=== PATIENT | female | born 1955 | race Caucasian/White ===

== ENCOUNTER → 2017-09-18 | Outpatient (CLI) | payer OTHER ==
[~2017-09-18] MED LIST: LOVASTATIN
--- NOTE | 2017-09-27 08:25 | Diagnostic Imaging Report ---
#[id number] - MGSCRNBI #BILATERAL DIGITAL SCREENING MAMMOGRAM WITH CAD: 09/18/2017 CLINICAL: Routine screening. Comparison is made to exams dated: 08/11/2016 mammogram, 09/24/2015 mammogram and 09/03/2015 mammogram - [facility]. Current study contains 8 films. There are scattered fibroglandular elements in both breasts. Current study was also evaluated with a Computer Aided Detection (CAD) system. There are benign calcifications in both breasts. There also are benign nodules in the left breast that are stable. Bilateral breast implants are present with adjacent dystrophic calcification in the left breast secondary to implant leakage/rupture. No significant masses, calcifications, or other findings are seen in either breast. There has been no significant interval change. IMPRESSION: BENIGN There is no mammographic evidence of malignancy. A 1 year screening mammogram is recommended. The patient will be notified by letter of the results. Naif Keith Jr., D.O. cw/:09/26/2017 13:10:30 Enhanced Environmental Operator: Vesta NOEL(R)(M), [facility] letter sent: Compared to Prior B9 Mammogram BI-RADS: 2 Benign
== END ==
LOC: MAMMO 13:02
PROVIDERS: ATTEND Obstetrics & Gynecology Obstetrics
DX: Z12.31 Encounter for screening mammogram for malignant neoplasm of breast (principal)

== ENCOUNTER → 2018-02-18 | Outpatient (CLI) | payer OTHER ==
--- NOTE | 2018-02-18 11:30 | Diagnostic Imaging Report ---
EXAM: Bone mineral density study 02/18/2018 9:02 AM INDICATION: \S\OSTEOPENIA COMPARISON: 09/03/2015 FINDINGS: Evaluation of the left hip and lumbar spine was performed. The study is technically adequate. The patient's fracture risk is compared to an age-matched control. The left femoral neck total bone mineral density is 0.655 gm/cm2, the T-score is -1.7 and the total Z-score is -0.2. The total left hip bone mineral density is 0.745 gm/cm2, the T-score is -1.6 and the total Z-score is -0.4. The total left hip BMD change versus baseline is -1.5%. The lumbar spine total bone mineral density is 0.928 gm/cm2, the T-score is -1.1, and the Z-score is 0.7. The lumbar spine BMD change versus baseline is 9.3%. IMPRESSION: Bone mineralization by WHO Classification is osteopenia, the fracture risk is increased. Signed by: Dr. Buck Chand MD on 02/18/2018 11:26 AM
--- NOTE | 2018-02-18 11:40 | Diagnostic Imaging Report ---
EXAM: Thyroid Ultrasound INDICATION: \[id number] \S\[id number] \S\THYROID NODULE COMPARISON: Thyroid ultrasound dated 05/04/2016 TECHNIQUE: Transverse and sagittal images were obtained of the thyroid gland. FINDINGS: Thyroid gland: Size: Right lobe: 3.9 x 1.3 x 1.6 cm, Normal in size Left lobe: 4 x 1.4 x 1.7 cm, Normal in size Isthmus: 0.3 cm, Normal in size Appearance: Mildly heterogeneous echotexture without increased vascularity Masses/Nodules: Right lobe: 0.6 x 0.4 x 0.5 cm solid (2 pts) nodule in the interpolar region with smooth margin (0 pts), djoob-itkh-epku (0 pts), isoechoic (1 pt), and punctate echogenic foci (3 pts). Previously 0.8 x 0.5 x 0.7 cm. TR4a (<1.0 cm): No follow-up. 0.5 x 0.4 x 0.4 cm solid (2 pts) nodule in the inferior pole with smooth margin (0 pts), nxztl-rbhb-xqlt (0 pts), hypoechoic (2 pts), and macrocalcifications (1 pt). Previously 0.4 x 0.3 x 0.5 cm. TR4a (<1.0 cm): No follow-up. Left lobe: 0.7 x 0.6 x 0.6 cm solid (2 pts) nodule in the interpolar region with smooth margin (0 pts), kaayn-jdvy-jxsi (0 pts), hypoechoic (2 pts), and punctate echogenic foci (3 pts). Previously 0.6 x 0.4 x 0.5 cm. TR5b (0.5-1.0 cm), Highly Suspicious: Follow at 1, 2, 3, 4, 5 years. Parathyroid: No focal parathyroid masses. IMPRESSION: Subcentimeter thyroid nodules as above. None meets the criteria for fine-needle aspiration. Recommend follow-up in one year. TI-RADS Lexicon: TR1, Benign: No FNA TR2, Not Suspicious: No FNA. TR3a (<1.5 cm): No follow-up. TR3b (1.5-2.5 cm), Mildly Suspicious: Follow at 1, 3, 5 years. TR3c (>2.5 cm), Mildly Suspicious: FNA. TR4a (<1.0 cm): No follow-up. TR4b (1.0-1.5 cm), Moderately Suspicious: Follow at 1, 2, 3, 5 years. TR4c (>1.5 cm), Moderately Suspicious: FNA. TR5a (<0.5 cm): No follow-up. TR5b (0.5-1.0 cm), Highly Suspicious: Follow at 1, 2, 3, 4, 5 years. TR5c (>1.0 cm), Highly Suspicious: FNA. *Rebiopsy if new suspicious features *No recommendation at this time for significant interval growth. Nodule Characteristics: * Benign features: cystic, hyperechoic, comet-tail artifact, complete halo * Minor suspicious features: solid, hypoechoic, other calcifications * Major suspicious features: microcalcifications, marked hypoechoic (less than strap muscle), suspicious lymph nodes, taller than wide, lobulated or ill-defined margins. Literature: ACR Thyroid Imaging, Reporting and Data System (TI-RADS): White Paper of the ACR TI-RADS Committee. J Am Jong Radiol 2017. Signed by: Dr. Buck Chand MD on 02/18/2018 11:37 AM
== END ==
LOC: US 08:46
PROVIDERS: ATTEND Family Medicine
DX: E04.1 Nontoxic single thyroid nodule (principal); M85.88 Other specified disorders of bone density and structure, other site
CPT/HCPCS: 76536; 77080

== ENCOUNTER → 2018-09-27 | Outpatient (CLI) | payer OTHER | LOC: MAMMO 08:29 | PROVIDERS: ATTEND Family Medicine | DX: Z12.31 Encounter for screening mammogram for malignant neoplasm of breast (principal) | CPT/HCPCS: 77067 ==

== ENCOUNTER → 2019-09-10 | Day surgery (SDC) | payer OTHER ==
[2019-09-08 11:45] LABS: BASOPHILS # (AUTO) 0.1 (0.0-0.1); BASOPHILS % 0.5 % (0.0-1.0); EOSINOPHILS # (AUTO) 0.1 (0.0-0.4); EOSINOPHILS % 1.2 % (0.0-6.0); HEMATOCRIT 40.8 % (34.2-44.1); HEMOGLOBIN 13.7 g/dL (12.0-16.0); LYMPHOCYTES # (AUTO) 2.9 (1.0-3.2); LYMPHOCYTES % 31.3 % (18.0-39.1); MEAN CORPUSCULAR HEMOGLOBIN 31.8 pg (28-32); MEAN CORPUSCULAR HGB CONC 33.6 g/dL (31-35); MEAN CORPUSCULAR VOLUME 94.7 fL (81-99); MONOCYTES # (AUTO) 0.9 (0.2-0.8); MONOCYTES % 9.4 % (4.4-11.3); NEUTROPHILS # (AUTO) 5.3 (2.1-6.9); NEUTROPHILS % 57.4 % (38.7-80.0); PLATELET COUNT 284 x10e3/uL (140-360); RED BLOOD COUNT 4.31 x10e6/uL (3.6-5.1); RED CELL DISTRIBUTION WIDTH 13.2 % (11.7-14.4)
--- NOTE | 2019-09-08 12:10 | Diagnostic Imaging Report ---
Exam: Chest radiograph Clinical History: Preoperative clearance Findings: The cardiomediastinal silhouette and lungs are normal. The regional skeleton and soft tissue are unremarkable. There is no evidence of pleural effusion or pneumothorax. Impression: No radiographic evidence of acute cardiopulmonary disease. Signed by: Dr. Moises Mehta MD on 09/08/2019 12:08 PM
[~2019-09-10] MED LIST changes: +ACETAMINOPHEN 1000 MG/100 ML IV ONE; +CEFAZOLIN SOD 1 GM/NS 50ML 100 ML IV ONE; +DESFLURANE 240 ML BTL INH ONE; +DEXAMETHASONE SOD PHOS INJ 4 MG/ML VIAL ONE; +EPINEPHRINE 1 MG/ML 30ML VIAL ONE; +EYE LUBRICANT OPTH OINT 3.5GM TUBE OP ONE; +FENTANYL CITRATE/PF 100MCG/2 ML INJ ONE; +GLYCOPYRROLATE INJ 0.2 MG/ML VIAL ONE; +KETOROLAC TROMETHAMINE 30 MG/ML VIAL ONE; +LIDOCAINE HCL 2% LOCAL INJ 5 ML SDV VIAL INJ ONE; -LOVASTATIN; +LOVASTATIN PO; +METOCLOPRAMIDE HCL 10 MG/2ML VIAL ONE; +MIDAZOLAM HCL 2 MG/2 ML VIAL ONE; +NEOSTIGMINE 1 MG/ML 10ML VIAL ONE; +ONDANSETRON HCL INJ 2MG/ML 2ML 2 MG/ML VIAL ONE; +PROPOFOL IV EMULSION 10 MG/ML 20 ML VIAL ONE; +ROCURONIUM BROMIDE 10 MG/ML 5ML VIAL ONE; +ROPIVACAINE 0.5% 5 MG/ML 30 ML SDV ONE; +VENLAFAXINE HCL75 MG PO; +VITAMIN D34000 UNIT PO
--- OUTSIDE RECORDS SUMMARY | 2019-09-10 05:39 | XMS REPORT ---
Author [facility] Address Unknown Phone Unavailable Care Team Providers Care Affiliate Marketing Manager Name Role Phone RAJESH SPENCE Unavailable Unavailable ELUI, VU Unavailable Unavailable JAFFE, E GARRETT Unavailable Unavailable Problems This patient has no known problems. Allergies, Adverse Reactions, Alerts This patient has no known allergies or adverse reactions. Medications This patient has no known medications. Results Test Description Test Time Test Comments Text Results Atomic Results Result Comments CHEST 2 VIEWS 2019-09-08 12:08:00 [place] [address] Patient Name: CHRIS GUTIERREZ MR #: [id number] : 1955 Age/Sex: 64/F Req #: [id number] Adm Physician: Ordered by: RAJESH SPENCE MD Report #: [id number] Location: OR Room/Bed: Procedure: [id number] DX/CHEST 2 VIEWS Exam Date: 09/08/19 Exam Time: 1150 REPORT STATUS: Signed Exam: Chest radiograph Clinical History: Preoperative c learance Findings: The cardiomediastinal silhouette and lungs are normal. The regional skeleton and soft tissue are unremarkable. There is no evidence of pleural effusion or pneumothorax. Impression: No radiographic evidence of acute cardiopulmonary disease. Signed by: Dr. Moises Mehta MD on 09/08/2019 12:08 PM Dictated By: MARY MEHTA MD 07 Transcribed By: BISI on 09/08/191207 COPY TO: RAJESH SPENCE MD MRI SHOULDER RIGHT WO 2019-08-20 15:54:00 [facility] [address] [place] [address] Patient Name: CHRIS GUTIERREZ MR #: [id number] : 1955 Age/Sex: 64/F Req #: [id number] Adm Physician: Ordered by: PATRICK NOWAK MD Report #: [id number] Location: MRI Room/Bed: Procedure: [id number] MRI/MRI SHOULDER RIGHT WO Exam Date: Exam Time: REPORT STATUS: Signed MRI of the right shoulder without contrast. History: Shoulder pain. Impingement. Fall. Decreased range of motion. Pain not responding to conservative management. Comparison: None Technique: Coronal PD FS, sagital PD FS, and axial PD and PD FS. Findings: Rotator cuff: Rotator cuff tendinosis with midsubstance degeneration and articular sided partial tear involving the anterior fibers of the supraspinatus and infraspinatus tendons at the humeral insertion site. This is best seen on series 5 image 4 and series 3 image 16. Additionally, there is subscapularis tendinosis. The teres minor tendon is intact. Osseous acromion complex: Type II acromion with mild lateral downsloping. Mild degenerative arthrosis at the acromioclavicular joint with undersurface spurring and narrowing of the supraspinatus tendon outlet. Mild subacromial/subdeltoid bursitis. Glenohumeral joint: Degeneration and fraying of the labrum. The articular cartilage surfaces are intact. The humeral head is well seated in the glenoid fossa. Biceps tendon: Intra-articular biceps tendinosis with fraying at the biceps anchor Other findings: Negative for muscle denervation or osseous fracture Impression: Rotator cuff tendinosis with midsubstance degeneration and articular sided partial tear involving the anterior fibers of the supraspinatus and infraspinatus tendons at the humeral insertion site. Intra-articular biceps tendinosis with fraying at the biceps anchor. Mild degenerative arthrosis at the acromioclavicular joint with undersurface spurring and narrowing of the supraspinatus tendon outlet. Mild subacro mial/subdeltoid bursitis Signed by: Dr. Celsa Saba M.D. on 08/20/2019 3:57 PM Dictated By: CELSA SABA MD, MD 56 Transcribed By: BISI on 08/20/191556 COPY TO: PATRICK NOWAK MD MAMMOGRAPHY DIGITAL SCR BILAT 2018-09-27 10:21:00 [place] [address] Patient Name: CHRIS GUTIERREZ MR #: [id number] : 1955 Age/Sex: 63/F Req #: [id number] [facility] Physician: Ordered by: PATRICK NOWAK MD Report #: [id number] Location: [facility] Room/Bed: Procedure: [id number] MG/MAMMOGRAPHY DIGITAL SCR BILAT Exam Date: 09/27/18 Exam Time: 0847 REPORT STATUS: Signed #[id number] - MGSCRBIL #BILATERAL DIGITAL SCREENING MAMMOGRAM WITH CAD: 09/27/2018 CLINICAL: Routine screening. Comparison is made to exams dated: 09/18/2017 mammogram and 09/24/2015 mammogram - [facility]. Current study contains 8 films. There are scattered fibroglandular elements in both breasts. Current study was also evaluated with a Computer Aided Detection (CAD) system. There are benign calcifications in both breasts. There also are benign nodules in the left breast. Bilateral breast implants are stable with dystrophic calcification adjacent to the left one appearing unchanged. There is stable distortion of the left breast. No significant masses, calcifications, or other findings are seen in either breast. There has been no significant interval change. IMPRESSION: BENIGN There is no mammographic evidence of malignancy. A 1 year screening mammogram is recommended. The patient will be notified by letter of the results. Naif Keith Jr., D.O. cw/:10/11/2018 10:27:08 Legal Nurse Consultant: Vesta NOEL (R)(Letty), [facility] letter sent: Compared to Prior B9 Mammogram BI-RADS: 2 Benign Dictated By: NAIF KEITH DO 1027 Transcribed By: COREEN on 10/11/18 1027 COPY TO: PATRICK NOWAK MD THYROID 2018-02-18 11:28:00 [place] [address] Patient Name: CHRIS GUTIERREZ MR #: [id number] : 1955 Age/Sex: 62/F Req #: [id number] Adm Physician: Ordered by: PATRICK NOWAK MD Report #: [id number] Location: US Room/Bed: Procedure: US/US THYROID Exam Date: 02/18/18 Exam Time: 930 REPORT STATUS: Signed EXAM: Thyroid Ultrasound INDICATION: COMPARISON: Thyroid ultrasound dated 05/04/2016 TECHNIQUE: Transverse and sagittal images were obtained of the thyroid gland. FINDINGS: Thyroid gland: Size: Right lobe: 3.9 x 1.3 x 1.6 cm, Normal in size Left lobe: 4 x 1.4 x 1.7 cm, Normal in size Isthmus: 0.3 cm, Normal in size Appearance: Mildly heterogeneous echotexture without increased vascularity Masses/Nodules: Right lobe: 0.6 x 0.4 x 0.5 cm solid (2 pts) nodule in the interpolar region with smooth margin (0 pts), gfamp-wnbn-flzw (0 pts), isoechoic (1 pt), and punctate echogenic foci (3 pts). Previously 0.8 x 0.5 x 0.7 cm. TR4a (<1.0 cm): No follow-up. 0.5 x 0.4 x 0.4 cm solid (2 pts) nodule in the inferior pole with smooth margin (0 pts), jhszk-tqxo-xnsb (0 pts), hypoechoic (2 pts), and macrocalcifications (1 pt). Previously 0.4 x 0.3 x 0.5 cm. TR4a (<1.0 cm): No follow-up. Left lobe: 0.7 x 0.6 x 0.6 cm solid (2 pts) nodule in the interpolar region with smooth margin (0 pts), rrofi-tugz-fohb (0 pts), hypoechoic (2 pts), and punctate echogenic foci (3 pts). Previously 0.6 x 0.4 x 0.5 cm. TR5b (0.5-1.0 cm), Highly Suspicious: Follow at 1, 2, 3, 4, 5 years. Parathyroid: No focal parathyroid masses. IMPRESSION: Subcentimeter thyroid nodules as above. None meets the criteria for fine- needle aspiration. Recommend follow-up in one year. TI- RADS Lexicon: TR1, Benign: No FNA TR2, Not Suspicious: No FNA. TR3a (<1.5 cm): No follow-up. TR3b (1.5-2.5 cm), Mildly Suspicious: Follow at 1, 3, 5 years. TR3c (>2.5 cm), Mildly Suspicious: FNA. TR4a (<1.0 cm): No follow-up. TR4b (1.0-1.5 cm), Moderately Suspicious: Follow at 1, 2, 3, 5 years. TR4c (>1.5 cm), Moderately Suspicious: FNA. TR5a (<0.5 cm): No follow-up. TR5b (0.5-1.0 cm), Highly Suspicious: Follow at 1, 2, 3, 4, 5 years. TR5c (>1.0 cm), Highly Suspicious: FNA. *Rebiopsy if new suspicious features *No karine mmendation at this time for significant interval growth. Nodule Characteristics: * Benign features: cystic, hyperechoic, comet-tail artifact, complete halo * Minor suspicious features: solid, hypoechoic, other calcifications * Major suspicious features: microcalcifications, marked hypoechoic (less than strap muscle), suspicious lymph nodes, taller than wide, lobulated or ill-defined margins. Literature: ACR Thyroid Imaging, Reporting and Data System (TI-RADS): White Paper of the ACR TI-RADS Committee. J Am Jong Radiol 2017. Signed by: Dr. Buck García MD on 02/18/2018 11:37 AM Dictated By: BUCK GARCÍA MD 36 Transcribed By: BISI on 02/18/181136 COPY TO: PATRICK NOWAK MD BONE DXA DUAL ENERGY 2018-02-18 11:24:00 [place] [address] Patient Name: CHRIS GUTIERREZ MR #: [id number] : 1955 Age/Sex: 62/F Req #: [id number] Adm Physician: Ordered by: PATRICK NOWAK MD Report #: [id number] Location: Room/Bed: Procedure: [id number] DX/BONE DXA DUAL ENERGY Exam Date: Exam Time: REPORT STATUS: Signed EXAM: Bone mineral density study 02/18/2018 9:02 AM INDICATION: COMPARISON: 09/03/2015 FINDINGS: Evaluation of the left hip and lumbar spine was performed. The study is technically adequate. The patient's fracture risk is compared to an age-matched control. The left femoral neck total bone mineral density is 0.655 gm/cm2, the T-score is -1.7 and the total Z-score is -0.2. The total left hip bone mineral density is 0.745 gm/cm2, the T-score is -1.6 and the total Z-score is -0.4. The total left hip BMD change versus baseline is -1.5%. The lumbar spine total bone mineral density is 0.928 gm/cm2, the T-score is -1.1, and the Z-score is 0.7. The lumbar spine BMD change versus baseline is 9.3%. IMPRESSION: Bone mineralization by WHO Classification is osteopenia, the fr acture risk is increased. Signed by: Dr. Buck García MD on 02/18/2018 11:26 AM Dictated By: BUCK GARCÍA MD 1126 Transcribed By: BISI on 02/18/18 112 COPY TO: PATRICK NOWAK MD MAMMOGRAM DIGITAL SCR [place] [address] Patient Name: CHRIS GUTIERREZ MR #: [id number] : 1955 Age/Sex: 62/F Req #: [id number] Adm Physician: Ordered by: GARRETT JAFFE MD Report #: [id number] Location: [facility] Room/Bed: Procedure: [id number] MG/MAMMOGRAM DIGITAL SCR BI Exam Date: 09/18/17 Exam Time: 1306 REPORT STATUS: Signed #[id number] - MGSCRNBI #BILATERAL DIGITAL SCREENING MAMMOGRAM WITH CAD: 09/18/2017 CLINICAL: Routine screening. Comparison is made to exams dated: 08/11/2016 mammogram, 09/24/2015 mammogram and 09/03/2015 mammogram - [facility]. Current study contains 8 films. There are scattered fibroglandular elements in both breasts. Current study was also evaluated with a Computer Aided Detection (CAD) system. There are benign calcifications in both breasts. There also are benign nodules in the left breast that are stable. Bilateral breast implants are present with adjacent dystrophic calcification in the left breast secondary to implant leakage/rupture. No significant masses, calcifications, or other findings are seen in either breast. There has been no significant interval change. IMPRESSION: BENIGN There is no mammographic evidence of malignancy. A 1 year screening mammogram is recommended. The patient will be notified by letter of the results. Naif Keith Jr., D.O. cw/:09/26/2017 13:10:30 Legal Nurse Consultant: Vesta AMBROCIO)(M), [facility] letter sent: Compared to Prior B9 Mammogram BI-RADS: 2 Benign Dictated By: NAIF KEITH DO 1310 Transcribed By: COREEN on 09/26/17 1310 COPY TO: GARRETT JAFFE MD
[2019-09-10 10:26] VITALS: BP 103/66
--- NOTE | 2019-09-19 23:19 | Operative Report ---
DATE OF PROCEDURE: 09/10/2019 SURGEON: Sebastian Gonzalez MD PREOPERATIVE DIAGNOSES: Right shoulder rotator cuff tear, right shoulder bursitis. POSTOPERATIVE DIAGNOSES: Right shoulder rotator cuff tear, right shoulder synovitis, right shoulder bursitis. OPERATIONS AND PROCEDURES PERFORMED: The patient underwent right shoulder exam under anesthesia, right shoulder arthroscopy, right shoulder arthroscopic debridement of synovitis, right shoulder arthroscopic rotator cuff reconstruction, right shoulder arthroscopic subacromial decompression and acromioplasty. GOLF COURSE MANAGER: NOVA Gonzalez ANESTHESIA: General endotracheal intubation anesthesia. IV FLUIDS: Per anesthesia record. BRIEF DESCRIPTION OF THE PATIENT'S OPERATIVE PROCEDURE: Ms. Forde was taken to the operating room, placed in supine position on the operating table. Following induction of general anesthesia as well as endotracheal intubation, the patient's right upper extremity was examined under anesthesia. She was found to have full passive range of motion of the shoulder joint. There was no evidence of instability. There were no gross abnormalities to the shoulder joint. The patient's upper extremity was prepped and draped in standard surgical fashion. Standard posterior, lateral, and anterior portals were created without difficulty. The scope was placed in the shoulder joint atraumatically. Examination of glenohumeral articulation demonstrated no significant evidence of chondromalacia. There was diffuse synovitis in the shoulder joint. There were no loose bodies in the shoulder joint. Examination of the rotator cuff tissue demonstrated a full-thickness rotator cuff tear. A probe was placed in the shoulder joint and the biceps tendon was probed thoroughly. The long head of the biceps was firmly attached to the glenoid. There was no evidence of a labral tear. There was no evidence of biceps tendon tear. A shaver was used to debride the articular surface of the rotator cuff. The shaver was also used to debride the insertion site to a bleeding bony bed. The shoulder was inflated with sterile normal saline. The scope was placed in subacromial space and significant bursal inflammation was encountered. A lateral portal was created through an outside-in technique. A shaver was inserted into the subacromial space and a bursectomy was performed. The rotator cuff injury was easily identified. The bursal surface of the rotator cuff tear was debrided using the shaver. The shaver was also used to debride the insertion site to a bleeding bony bed. An accessory anterior lateral portal was created. A single suture anchor was inserted into the greater tuberosity of the humerus and the suture arms from the anchor were then passed through the rotator cuff tissue. The rotator cuff tissue was then advanced and tied firmly over its insertion site. This resulted in a complete reapproximation of the rotator cuff injury. The coracoacromial ligament was resected. An aggressive acromioplasty was then performed. The shoulder was then placed through range of motion and there was no evidence of impingement. The shoulder was deflated with sterile normal saline. The portal sites were closed and sterile dressings were applied. The patient was provided a shoulder immobilizer, awakened, taken to postanesthesia care in stable condition. Mackenzie Yadav acted as medical office receptionist assistant for this case and was necessary for both prepping and draping the patient as well as the passage of suture and closure of the wound to allow this case to be successful. MD SURENDRA Abel/ROSETTE /[id number]
== END | disposition home or self-care (01) ==
LOC: OR 05:32
PROVIDERS: ATTEND Specialist
DX: M75.111 Incomplete rotator cuff tear or rupture of right shoulder, not specified as traumatic (principal); M65.811 Other synovitis and tenosynovitis, right shoulder; M75.51 Bursitis of right shoulder; R06.83 Snoring; F17.210 Nicotine dependence, cigarettes, uncomplicated; W18.39XA Other fall on same level, initial encounter; Z01.810 Encounter for preprocedural cardiovascular examination; Z01.812 Encounter for preprocedural laboratory examination; Z01.818 Encounter for other preprocedural examination
CPT/HCPCS: 29826; 29827; 36415; 71046; 85025; 93005; C1713; J0131; J0690; J1100; J1885; J2001; J2250; J2405; J2704; J2710; J2765; J2795; J3010

== ENCOUNTER 2019-12-17 08:51 | Outpatient (RCR) | payer OTHER ==
[~2019-12-17 08:51] MED LIST changes: -ACETAMINOPHEN 1000 MG/100 ML IV ONE; -CEFAZOLIN SOD 1 GM/NS 50ML 100 ML IV ONE; -DESFLURANE 240 ML BTL INH ONE; -DEXAMETHASONE SOD PHOS INJ 4 MG/ML VIAL ONE; -EPINEPHRINE 1 MG/ML 30ML VIAL ONE; -EYE LUBRICANT OPTH OINT 3.5GM TUBE OP ONE; -FENTANYL CITRATE/PF 100MCG/2 ML INJ ONE; -GLYCOPYRROLATE INJ 0.2 MG/ML VIAL ONE; -KETOROLAC TROMETHAMINE 30 MG/ML VIAL ONE; -LIDOCAINE HCL 2% LOCAL INJ 5 ML SDV VIAL INJ ONE; -METOCLOPRAMIDE HCL 10 MG/2ML VIAL ONE; -MIDAZOLAM HCL 2 MG/2 ML VIAL ONE; -NEOSTIGMINE 1 MG/ML 10ML VIAL ONE; -ONDANSETRON HCL INJ 2MG/ML 2ML 2 MG/ML VIAL ONE; -PROPOFOL IV EMULSION 10 MG/ML 20 ML VIAL ONE; -ROCURONIUM BROMIDE 10 MG/ML 5ML VIAL ONE; -ROPIVACAINE 0.5% 5 MG/ML 30 ML SDV ONE
== END 2019-12-28 ==
LOC: OT 08:51
PROVIDERS: ATTEND Specialist
DX: S46.001D Unspecified injury of muscle(s) and tendon(s) of the rotator cuff of right shoulder, subsequent encounter (principal); M25.611 Stiffness of right shoulder, not elsewhere classified; R53.1 Weakness

== ENCOUNTER → 2021-01-14 | Outpatient (CLI) | payer OTHER | LOC: MAMMO 10:59 | PROVIDERS: ATTEND Family Medicine | DX: Z12.31 Encounter for screening mammogram for malignant neoplasm of breast (principal); M85.88 Other specified disorders of bone density and structure, other site; E04.1 Nontoxic single thyroid nodule | CPT/HCPCS: 76536; 77067; 77080 ==

== ENCOUNTER → 2021-04-15 | Outpatient (CLI) | payer OTHER | LOC: MRI 10:07 | PROVIDERS: ATTEND Physical Medicine & Rehabilitation Pain Medicine | DX: M54.17 Radiculopathy, lumbosacral region (principal) | CPT/HCPCS: 72148 ==

== ENCOUNTER → 2022-10-06 | Outpatient (CLI) | payer OTHER | LOC: MAMMO 09:10 | PROVIDERS: ATTEND Obstetrics & Gynecology | DX: Z12.31 Encounter for screening mammogram for malignant neoplasm of breast (principal); M85.88 Other specified disorders of bone density and structure, other site | CPT/HCPCS: 77067; 77080 ==

== ENCOUNTER 2022-11-19 10:15 | Emergency (ER) | payer MEDICARE, OTHER ==
[~2022-11-19] VITALS: Ht 160 cm; Wt 68.0 kg
[2022-11-19] MEDS ORDERED: KETOROLAC TROMETHAMINE 30 MG/ML VIAL IV STA (10:27)
[2022-11-19] MEDS ORDERED: ONDANSETRON HCL INJ 2MG/ML 2ML 2 MG/ML VIAL IV STA (10:27)
[2022-11-19] MEDS ORDERED: SODIUM CHLORIDE 0.9% 1000ML 1,000 ML IV SCH (10:30)
[2022-11-19] MEDS ORDERED: FENTANYL CITRATE/PF 100MCG/2 ML INJ ONE (11:41)
[2022-11-19] MEDS ORDERED: FENTANYL CITRATE/PF 100MCG/2 ML INJ IV PRN (11:45)
[2022-11-19 12:17] LABS: COLOR,URINE YELLOW (YELLOW)
[2022-11-19 12:18] LABS: CLARITY,URINE CLEAR (CLEAR); KETONES,URINE NEGATIVE (NEGATIVE); LEUKOCYTE ESTERASE ,URINE NEGATIVE (NEGATIVE); NITRITE,URINE NEGATIVE (NEGATIVE); PROTEIN,URINE DIPSTICK NEGATIVE (NEGATIVE); URINE UROBILINOGEN 0.2 mg/dL (0.2 - 1)
[2022-11-19 12:19] LABS: WBC,URINE (MAN) 0-5 /HPF (0-5)
[2022-11-19 12:20] LABS: BACTERIA,URINE MODERATE /HPF; EPITHELIAL CELLS,URINE RARE /LPF; MUCUS,URINE FEW (RARE)
[2022-11-19] MEDS ORDERED: CYCLOBENZAPRINE5 MG PO (12:31)
[2022-11-19] MEDS ORDERED: NAPROXEN250 MG PO (12:33)
[2022-11-19] MEDS ORDERED: LIDOCAINE1 EACH EXT (12:33)
== END 2022-11-19 13:02 | disposition home or self-care (01) ==
LOC: ER 10:23
DX: M54.50 Low back pain, unspecified (principal); N20.0 Calculus of kidney; K80.20 Calculus of gallbladder without cholecystitis without obstruction; K57.90 Diverticulosis of intestine, part unspecified, without perforation or abscess without bleeding; R11.0 Nausea; R91.8 Other nonspecific abnormal finding of lung field
CPT/HCPCS: 74176; 81001; 99284; J3010

== ENCOUNTER → 2022-11-29 | Day surgery (SDC) | payer MEDICARE, OTHER ==
[2022-11-22 10:08] LABS: BASOPHILS # (AUTO) 0.1 (0.0-0.1); BASOPHILS % 1.1 % (0.0-1.0); EOSINOPHILS # (AUTO) 0.1 (0.0-0.4); EOSINOPHILS % 1.1 % (0.0-6.0); HEMATOCRIT 41.8 % (34.2-44.1); HEMOGLOBIN 14.1 g/dL (12.0-16.0); LYMPHOCYTES # (AUTO) 2.5 (1.0-3.2); LYMPHOCYTES % 40.1 % (18.0-39.1); MEAN CORPUSCULAR HEMOGLOBIN 31.5 pg (28-32); MEAN CORPUSCULAR HGB CONC 33.7 g/dL (31-35); MEAN CORPUSCULAR VOLUME 93.3 fL (81-99); MONOCYTES # (AUTO) 0.6 (0.2-0.8); MONOCYTES % 10.1 % (4.4-11.3); NEUTROPHILS # (AUTO) 2.9 (2.1-6.9); NEUTROPHILS % 47.3 % (38.7-80.0); PLATELET COUNT 252 x10e3/uL (140-360); RED BLOOD COUNT 4.48 x10e6/uL (3.6-5.1); RED CELL DISTRIBUTION WIDTH 12.7 % (11.7-14.4)
[~2022-11-29] MED LIST changes: +ACETAMINOPHEN 1000 MG/100 ML 100 ML IV ONE; +BUPIVACAINE 0.5%/EPI 30 ML SDV INJ ONE; +CEFAZOLIN SODIUM 2 GM ONE; +CYCLOBENZAPRINE5 MG PO; +DEXAMETHASONE SOD PHOS INJ 4 MG/ML SDV ONE; +FENTANYL CITRATE/PF 100MCG/2 ML INJ ONE; +KETOROLAC TROMETHAMINE 30 MG/ML VIAL ONE; +LACTATED RINGER'S 1,000 ML ONE; +LIDOCAINE HCL 2% LOCAL INJ 5 ML SDV VIAL INJ ONE; +LIDOCAINE1 EACH EXT; +NAPROXEN250 MG PO; +ONDANSETRON HCL INJ 2MG/ML 2ML 2 MG/ML VIAL ONE; +POVIDONE IODINE 0.05% 0.05 % ML PO ONE; +PROPOFOL IV EMULSION 10 MG/ML 20 ML VIAL ONE; +SEVOFLURANE INHAL SOLN 250 ML PEN BTL ONE
[2022-11-29 08:27] VITALS: TEMP 98.3
[2022-11-29 09:25] VITALS: BP 127/83; PULSE 68; RESP 17; O2SAT 99
== END | disposition home or self-care (01) ==
LOC: OR 05:35
PROVIDERS: ATTEND Specialist
DX: S83.261A Peripheral tear of lateral meniscus, current injury, right knee, initial encounter (principal); S83.241A Other tear of medial meniscus, current injury, right knee, initial encounter; M94.261 Chondromalacia, right knee; M17.0 Bilateral primary osteoarthritis of knee; S83.222A Peripheral tear of medial meniscus, current injury, left knee, initial encounter; M70.62 Trochanteric bursitis, left hip; X58.XXXA Exposure to other specified factors, initial encounter; Z88.6 Allergy status to analgesic agent; Z01.810 Encounter for preprocedural cardiovascular examination; Z01.812 Encounter for preprocedural laboratory examination; Z01.818 Encounter for other preprocedural examination; Z79.899 Other long term (current) drug therapy
CPT/HCPCS: 29880; 36415; 71046; 85025; 93005; J0131; J1100; J1885; J2001; J2405; J2704; J3010; J7121

== ENCOUNTER → 2023-11-27 | Outpatient (REF) | payer MEDICARE ==
[~2023-11-27] MED LIST changes: -ACETAMINOPHEN 1000 MG/100 ML 100 ML IV ONE; -BUPIVACAINE 0.5%/EPI 30 ML SDV INJ ONE; -CEFAZOLIN SODIUM 2 GM ONE; -DEXAMETHASONE SOD PHOS INJ 4 MG/ML SDV ONE; -FENTANYL CITRATE/PF 100MCG/2 ML INJ ONE; -KETOROLAC TROMETHAMINE 30 MG/ML VIAL ONE; -LACTATED RINGER'S 1,000 ML ONE; -LIDOCAINE HCL 2% LOCAL INJ 5 ML SDV VIAL INJ ONE; -ONDANSETRON HCL INJ 2MG/ML 2ML 2 MG/ML VIAL ONE; -POVIDONE IODINE 0.05% 0.05 % ML PO ONE; -PROPOFOL IV EMULSION 10 MG/ML 20 ML VIAL ONE; -SEVOFLURANE INHAL SOLN 250 ML PEN BTL ONE
== END ==
LOC: MRI 08:53
PROVIDERS: ATTEND Physical Medicine & Rehabilitation
DX: M54.16 Radiculopathy, lumbar region (principal); M51.26 Other intervertebral disc displacement, lumbar region
CPT/HCPCS: 72148